=== PATIENT | female | born 1955 | race Caucasian/White ===

== ENCOUNTER 2020-05-17 14:42 | Emergency (ER) | payer SELFPAY ==
[~2020-05-17] VITALS: Ht 167.6 cm; Wt 75.0 kg
[~2020-05-17 14:42] MED LIST: FLEXERIL PO; NAPROSYN500 MG PO; SYNTHROID75 MCG PO
[2020-05-17] MEDS ORDERED: CLEOCIN300 MG PO (15:31)
[2020-05-17 15:38] VITALS: BP 166/79
== END 2020-05-17 15:38 | disposition home or self-care (01) | DRG 603 ==
LOC: ED 14:42
PROC: 0H94XZZ Drainage of Neck Skin, External Approach (ICD-10-PCS; principal; 2020-05-17)
DX: L02.11 Cutaneous abscess of neck (principal); B95.7 Other staphylococcus as the cause of diseases classified elsewhere; F17.210 Nicotine dependence, cigarettes, uncomplicated

== ENCOUNTER 2020-07-19 11:10 | Emergency (ER) | payer SELFPAY ==
[~2020-07-19] VITALS: Ht 167.6 cm; Wt 70.0 kg
[~2020-07-19 11:10] MED LIST changes: +CLEOCIN300 MG PO
[2020-07-19 12:53] LABS: URINE BILIRUBIN - DIPSTICK NEGATIVE (NEGATIVE); URINE BLOOD DIPSTICK MODERATE (NEGATIVE); URINE COLOR YELLOW; URINE GLUCOSE - DIPSTICK NEGATIVE (NEGATIVE); URINE KETONE NEGATIVE (NEGATIVE); URINE LEUK ESTERASE NEGATIVE (NEGATIVE); URINE NITRITE - DIPSTICK NEGATIVE (Negative); URINE PROTEIN - DIPSTICK NEGATIVE (NEG-TRACE); URINE SPECIFIC GRAVITY 1.015; URINE UROBILINOGEN - DIPSTICK 0.2 E.U./dL (0.2)
[2020-07-19 12:54] LABS: URINE EPITHELIAL CELLS FEW EPI/hpf (0-FEW)
[2020-07-19] MEDS ORDERED: BACTRIM DS1 TAB PO (13:27)
[2020-07-19 13:40] VITALS: BP 118/62
== END 2020-07-19 13:40 | disposition home or self-care (01) | DRG 690 ==
LOC: ED 11:10
DX: N39.0 Urinary tract infection, site not specified (principal); J02.9 Acute pharyngitis, unspecified; E78.5 Hyperlipidemia, unspecified; F17.200 Nicotine dependence, unspecified, uncomplicated; Z20.828 Contact with and (suspected) exposure to other viral communicable diseases